=== PATIENT | female | born 1985 | race Caucasian/White ===

== ENCOUNTER 2021-06-30 08:06 | Emergency (ER) | payer OTHER ==
[2021-06-30] MEDS ORDERED: Fentanyl 100 MCG/2 ML VIAL ONE (09:08)
[2021-06-30] MEDS ORDERED: Ondansetron PF 4 MG/2 ML Vial ONE (09:08)
[2021-06-30 09:12] LABS: Red Blood Cell (RBC) Count 4.01 mill/uL (4.20-5.40); White Blood Cell (WBC) Count 13.3 thou/uL (4.8-10.8)
[2021-06-30 09:13] LABS: #Neutrophils 10.5 thou/uL (1.40-6.50); %Basophils 0.6 % (0.0-1.0); %Lymphocytes 11.7 % (21.0-51.0); %Monocytes 7.8 % (0.0-10.0); %Neutrophils 78.8 % (42.0-75.0); Hemoglobin 12.2 g/dL (12.0-16.0); Manual Diff?? NO; Mean Corpuscular HGB CONC 33.3 g/dL (32.0-36.0); Mean Corpuscular Hemoglobin 30.5 pg (27.0-31.0); Mean Corpuscular Volume 91.5 fL (78.0-98.0); Mean Platelet Volume 6.8 fL (7.4-10.4); Platelet Count 255 thou/uL (130-400); RBC Distribution Width 12.1 % (11.5-14.5)
[2021-06-30 09:14] LABS: #Basophils 0.1 thou/uL (0.0-0.2); #Eosinphils 0.1 thou/uL (0.0-0.7); MDiff Complete? YES
[2021-06-30 09:18] LABS: ALT (SGPT) 99 U/L (8-55); AST (SGOT) 62 U/L (5-34); Alkaline Phosphatase 78 U/L (40-110); Anion Gap 13 mmol/L (10-20); BUN (Urea Nitrogen) 8 mg/dL (7.0-18.7); Bilirubin, Total 0.4 mg/dL (0.2-1.2); Calc. Creatinine Clearance 0 mL/min (70-130); Calcium 9.1 mg/dL (7.8-10.44); Carbon Dioxide 23 mmol/L (22-29); Chloride 107 mmol/L (98-107); Globulin 3.5 g/dL (2.4-3.5); Glucose 112 mg/dL (70-105); Lipase 12 U/L (8-78); Potassium 3.9 mmol/L (3.5-5.1); Protein, Total 7.5 g/dL (6.0-8.3); Sodium 139 mmol/L (136-145)
[2021-06-30 09:29] LABS: Bilirubin Negative (Negative); Blood, Urine Negative (Negative); Clarity Clear (Clear); Glucose, Urine (Dipstick) Negative (Negative); Ketone, Urine Negative (Negative); Leukocyte Negative (Negative); Nitrite Negative (Negative); Protein, Urine (Dipstick) Negative (Neg-Trace); Urobilinogen 0.2 mg/dL (Less than 2); pH, Urine 6.5 (5.0-9.0)
[2021-06-30] MEDS ORDERED: Iopamidol 370 76% 100 ML VIAL ONE (11:15)
== END 2021-06-30 10:26 | disposition home or self-care (01) ==
LOC: BURERS 08:06
DX: G89.18 Other acute postprocedural pain (principal); K59.00 Constipation, unspecified
CPT/HCPCS: 74177; 80053; 81003; 83605; 83690; 85025; 94760; 96374; 96375; J2405; J3010; Q9967

== ENCOUNTER 2021-07-22 21:13 | Emergency (ER) | payer OTHER ==
[~2021-07-22 21:13] MED LIST: Iopamidol 370 76% 100 ML VIAL ONE
[2021-07-22 21:39] LABS: Bilirubin Negative (Negative); Blood, Urine Negative (Negative); Clarity Clear (Clear); Glucose, Urine (Dipstick) Negative (Negative); Ketone, Urine Negative (Negative); Leukocyte Negative (Negative); Nitrite Negative (Negative); Protein, Urine (Dipstick) Negative (Neg-Trace); Urobilinogen 0.2 mg/dL (Less than 2)
[2021-07-22 21:40] LABS: Pregnancy Test - Urine (BHCG) Negative (Negative); Pregu Control Background? CLEAR/WHITE (CLR/WHITE); Pregu Control Bar Appear? YES (CONTROL BAR)
[2021-07-22 22:23] LABS: #Basophils 0.1 thou/uL (0.0-0.2); #Eosinphils 0.1 thou/uL (0.0-0.7); #Lymphocytes 2.7 thou/uL (1.20-3.40); #Monocytes 0.9 thou/uL (0.11-0.59); #Neutrophils 4.5 thou/uL (1.40-6.50); %Basophils 0.9 % (0.0-1.0); %Lymphocytes 32.5 % (21.0-51.0); %Monocytes 11.4 % (0.0-10.0); %Neutrophils 54.2 % (42.0-75.0); Hemoglobin 12.4 g/dL (12.0-16.0); Mean Corpuscular HGB CONC 33.8 g/dL (32.0-36.0); Mean Corpuscular Hemoglobin 30.8 pg (27.0-31.0); Mean Corpuscular Volume 91.2 fL (78.0-98.0); Mean Platelet Volume 7.7 fL (7.4-10.4); Platelet Count 209 thou/uL (130-400); RBC Distribution Width 12.6 % (11.5-14.5); Red Blood Cell (RBC) Count 4.03 mill/uL (4.20-5.40); White Blood Cell (WBC) Count 8.3 thou/uL (4.8-10.8)
[2021-07-22 22:47] LABS: ALT (SGPT) 14 U/L (8-55); AST (SGOT) 13 U/L (5-34); Albumin 4.2 g/dL (3.5-5.0); Alkaline Phosphatase 40 U/L (40-110); Anion Gap 15 mmol/L (10-20); BUN (Urea Nitrogen) 7 mg/dL (7.0-18.7); Bilirubin, Total 0.3 mg/dL (0.2-1.2); Calc. Creatinine Clearance 0 mL/min (70-130); Carbon Dioxide 22 mmol/L (22-29); Chloride 108 mmol/L (98-107); Globulin 3.2 g/dL (2.4-3.5); Glucose 97 mg/dL (70-105); Lipase 14 U/L (8-78); Protein, Total 7.4 g/dL (6.0-8.3); Sodium 141 mmol/L (136-145)
== END 2021-07-22 23:20 | disposition home or self-care (01) ==
LOC: BURERS 21:13
DX: K59.00 Constipation, unspecified (principal); Z79.899 Other long term (current) drug therapy
CPT/HCPCS: 74177; 80053; 81003; 81025; 83605; 83690; 85025; Q9967